=== PATIENT | male | born 1930 | race Caucasian/White ===

== ENCOUNTER 2018-03-27 09:56 | Emergency (ER) | payer MEDICARE, OTHER ==
--- NOTE | 2018-03-27 10:40 | UC ---
Laceration HPI - HPI Summary HPI Summary: 87 yo male presents with laceration to right upper back. He tells me that he was walking to get into his recliner at home and tripped over the rug. Tumbled to his right and impacted a wall clock - breaking the glass face of the clock. A piece of glass caused a laceration to his right upper back. He says his last tetanus shot was last year. Denies hitting his head or LOC. - History Of Current Complaint Chief Complaint: UCLaceration Stated Complaint: LAC UNDER ARM PIT Time Seen by Provider: 03/27/18 10:39 Laceration Location: Back Mechanism Of Injury: Sharp Trauma Onset/Duration: Sudden Onset Pain Intensity: 0 - Allergies/Home Medications Allergies/Adverse Reactions: Allergies Allergy/AdvReac Type Severity Reaction Status Date / Time No Known Allergies Allergy Verified 03/27/18 10:17 PMH/Surg Hx/FS Hx/Imm Hx - Additional Past Medical History Additional PMH: None - Surgical History Surgical History: Yes Surgery Procedure, Year, and Place: hips shoulders - Family History Known Family History: Positive: None - Social History Occupation: Retired Lives: Alone Alcohol Use: Occasionally Substance Use Type: None Smoking Status (MU): Never Smoked Tobacco Review of Systems Constitutional: Negative Skin: Other - Laceration right upper back Respiratory: Negative Cardiovascular: Negative Neurovascular: Negative Neurological: Negative Psychological: Negative All Other Systems Reviewed And Are Negative: Yes Physical Exam - Summary Physical Exam Summary: GENERAL: NAD. WDWN. No pain distress. SKIN: Right upper back with 1.5cm flap-like partial thickness laceration. Mild active bleeding. NECK: Supple. Nontender. No lymphadenopathy. CHEST: No accessory muscle use. Breathing comfortably and in no distress. CV: Pulses intact NEURO: Alert. CN II-XII grossly intact. PSYCH: Age appropriate behavior. Triage Information Reviewed: Yes Vital Signs: Initial Vital Signs Temp 98 F 03/27/18 10:14 Pulse 85 03/27/18 10:14 Resp 16 03/27/18 10:14 BP 119/68 03/27/18 10:14 Pulse Ox 100 03/27/18 10:14 Vital Signs Reviewed: Yes Laceration Repair - Laceration Repair 1 Description: Stellate Laceration Size After Repair: Length (cm) - 1.5 Modified For Repair: No Type Injection: Local Anesthesia Used: 2.0% Lido Additive Used (in ml): Epi Cleansing Completed Via Routine Prep: Yes Closure Material: Sutures Closure Method: Single Layer Suture Of: Skin Suture Type: Prolene Laceration Course/Dx - Course/Dx Course Of Treatment: A time out was performed, witnessed, and signed. The area was cleansed with NS. 1mL of 2% lidocaine with epi was administered and good anesthetization was achieved. In the usual sterile fashion, FOUR 5-0 prolene interrupted sutures were placed. The wound was bandaged with telfa . Pt tolerated procedure well. - Differential Dx - Laceration/Wound Provider Diagnoses: Laceration right upper back Discharge - Sign-Out/Discharge Documenting (check all that apply): Patient Departure - Discharge Plan Condition: Stable Disposition: HOME Patient Education Materials: Care For Your Stitches (DC), Laceration (DC) Referrals: No Primary Care Phys,NOPCP [Primary Care Provider] - Additional Instructions: If you develop a fever, shortness of breath, chest pain, new or worsening symptoms - please call your PCP or go to the ED. 1) Please keep the area bandaged, clean, dry, and intact for the next 24- 48hours. 2) If you develop a fever, colored or thick discharge, increased pain or swelling - please call your PCP or go to the ED. 3) Please return in 10-12 days to have your FOUR sutures removed. - Billing Disposition and Condition Condition: STABLE Disposition: Home
[2018-03-27] MEDS ORDERED: Lidocaine 2% W/EPI 1:100,000* 20 ML MDV INJ ONE (10:41)
== END 2018-03-27 11:05 | disposition home or self-care (01) ==
LOC: UCEAST 09:56
DX: S21.211A Laceration without foreign body of right back wall of thorax without penetration into thoracic cavity, initial encounter (principal); W01.198A Fall on same level from slipping, tripping and stumbling with subsequent striking against other object, initial encounter; Y93.01 Activity, walking, marching and hiking; Y92.008 Other place in unspecified non-institutional (private) residence as the place of occurrence of the external cause
CPT/HCPCS: 12001; 99201; G0463

== ENCOUNTER 2019-04-29 18:38 | Inpatient (IN) | payer MEDICARE, OTHER ==
[2019-04-29 22:38] LABS: ABS Basophils 0.1 10^3/ul (0-0.2); ABS Eosinophils 0.1 10^3/ul (0-0.6); ABS Monocytes 0.7 10^3/ul (0-0.8); ABS Neutrophils 6.8 10^3/ul (1.5-7.7); Eosinophil % 0.6 %; Hematocrit 44 % (42-52); Lymphocyte % 11.2 %; Mean Corpuscular HGB Conc 34 g/dL (31-36); Mean Corpuscular Hemoglobin 31 pg (27-31); Mean Corpuscular Volume 92 fL (80-94); Mean Platelet Volume 7.4 fL (7.4-10.4); Platelet Count 181 10^3/uL (150-450); Red Cell Distribution Width 15 % (10-15); White Blood Count 8.6 10^3/uL (3.5-10.8)
[2019-04-29 22:43] LABS: INR 0.98 (0.82-1.09)
[2019-04-29 22:59] LABS: Albumin 4.4 g/dL (3.2-5.2); Albumin/Globulin Ratio 1.9 (1-3); BUN/Creatinine Ratio 27.3 (8-20); Calcium 10.2 mg/dL (8.6-10.3); EGFR African American 99.4 (>60); EGFR Non-African American 82.1 (>60); Globulin 2.3 g/dL (2-4); Total Bilirubin 0.9 mg/dL (0.2-1.0); Total Protein 6.7 g/dL (6.4-8.9)
[2019-04-29 23:00] LABS: Troponin I 0.02 ng/mL (<0.04)
[2019-04-29 23:45] LABS: Urine Appearance Cloudy; Urine Bilirubin Negative (Negative); Urine Blood Negative (Negative); Urine Color Amber; Urine Glucose 1+(50 mg/dL) (Negative); Urine Ketones Trace (Negative); Urine Nitrite Negative (Negative); Urine Protein Negative (Negative); Urine Specific Gravity 1.024 (1.010-1.030); Urine Urobilinogen Negative (Negative)
[2019-04-30] MEDS ORDERED: Dexamethasone IV* 4 MG/ML 5 ML VIAL (20 MG) IVPB ONE (00:23)
[2019-04-30] MEDS ORDERED: Dexamethasone IV* 10 MG in NS 0.9% 50 ML* 50 ML IVPB ONE (01:00)
--- NOTE | 2019-04-30 02:30 | ED ---
Neurological HPI - HPI Summary HPI Summary: Patient with history of glioblastoma complains of new onset inability to bear weight on right leg starting today. 2 falls today due to right lower extremity weakness but denies any injury from fall. Denies fever, cough, GOMEZ, other neurological deficits, CP, SOB, vision change, N/V/D, abdominal pain, change in urine, change in BM. Patient has history of tumor debulking in December 2018, and finished 3 weeks of radiation and by mouth chemotherapy in March. Patient is from [place], recently moved to [place] weeks ago, has no neurology,, neurosurgery, oncology providers yet. Patient not compliant with prescribed dexamethasone 2 mg daily. - History of Current Complaint Chief Complaint: EDNeurologicalDeficit Stated Complaint: FALL PER DAUGHTER Time Seen by Provider: 04/29/19 23:37 Hx Obtained From: Patient, Family/Visual Aid Expert Onset/Duration: Sudden Onset, Started hours ago Timing: Intermittent Episodes Lasting: Onset Severity: Moderate Current Severity: Moderate Seizure Severity: Moderate Neurological Deficit Location: RLE Pain Intensity: 0 Pain Scale Used: 0-10 Numeric Character: Weak - Allergy/Home Medications Allergies/Adverse Reactions: Allergies Allergy/AdvReac Type Severity Reaction Status Date / Time Sulfa (Sulfonamide Allergy Rash Verified 04/29/19 19:02 Antibiotics) Home Medications: Home Medications Atorvastatin* 10 mg PO DAILY 04/29/19 [History Confirmed 04/29/19] B Complex CAP* 1 tab PO DAILY 04/29/19 [History Confirmed 04/29/19] Calcium + D3 ER Tablet 2 tab PO DAILY 04/29/19 [History Confirmed 04/29/19] Dexamethasone 2 mg PO SEE INSTRUCTIONS 04/29/19 [History Confirmed 04/29/19] Diazepam TAB(*) 10 mg PO SEE INSTRUCTIONS 04/29/19 [History Confirmed 04/29/19] Finasteride TAB* 5 mg PO DAILY 04/29/19 [History Confirmed 04/29/19] Flonase NASAL SPRAY 50MCG* 2 spray BOTH NARES DAILY 04/29/19 [History Confirmed 04/30/19] Latanoprost 0.005% Eye Drop 1 drop BOTH EARS DAILY 04/29/19 [History Confirmed 04/29/19] Metoprolol Succinate XL TAB* 25 mg PO DAILY 04/29/19 [History Confirmed 04/29/19 ] Multivitamin 1 tab PO DAILY 04/29/19 [History Confirmed 04/29/19] Norvasc 2.5 mg PO DAILY 04/29/19 [History Confirmed 04/29/19] [place]-3 1,040 mg PO DAILY 04/29/19 [History Confirmed 04/29/19] Potassium Chlor TAB* 10 mg PO BID 04/29/19 [History Confirmed 04/29/19] Probiotic 1 tab PO DAILY 04/29/19 [History Confirmed 04/29/19] Tamsulosin CAP* 0.4 mg PO BID 04/29/19 [History Confirmed 04/29/19] Temazepam CAP* 15 mg PO BEDTIME 04/29/19 [History Confirmed 04/29/19] Testosterone 5 ml IM WEEKLY 04/29/19 [History Confirmed 04/29/19] Timolol 0.5% OPTH.GEO* 1 drop BOTH EYES DAILY 04/29/19 [History Confirmed ] Vitamin D3 50 mcg PO DAILY 04/29/19 [History Confirmed 04/29/19] l-Arginine 1,500 mg PO DAILY 04/29/19 [History Confirmed 04/29/19] PMH/Surg Hx/FS Hx/Imm Hx Endocrine/Hematology History: Denies: Hx Anticoagulant Therapy Cardiovascular History: Denies: Hx Pacemaker/ICD History: Denies: Hx Dialysis Sensory History: Denies: Hx Eye Prosthesis Opthamlomology History: Denies: Hx Legally Blind EENT History: Denies: Hx Deafness - Surgical History Surgery Procedure, Year, and Place: hips shoulders Infectious Disease History: No Infectious Disease History: Denies: Traveled Outside the [place] in Last 30 Days - Family History Known Family History: Positive: None - Social History Alcohol Use: Occasionally Substance Use Type: Reports: None Smoking Status (MU): Never Smoked Tobacco Review of Systems Constitutional: Negative Eyes: Negative ENT: Negative Cardiovascular: Negative Respiratory: Negative Gastrointestinal: Negative Genitourinary: Negative Musculoskeletal: Negative, Other Skin: Negative Neurological: Negative Psychological: Normal All Other Systems Reviewed And Are Negative: Yes Physical Exam - Summary Physical Exam Summary: Neuro exam normal. Vital Signs On Initial Exam: Initial Vitals Temp Pulse Resp BP Pulse Ox 99.3 F 82 16 141/68 95 04/29/19 18:55 04/29/19 18:55 04/29/19 18:55 04/29/19 18:55 04/29/19 18:55 Diagnostics - Vital Signs Vital Signs Temp Pulse Resp BP Pulse Ox 04/30/19 01:08 75 105/53 97 04/30/19 01:00 73 95 04/30/19 00:37 105/56 04/30/19 00:07 123/49 04/30/19 00:00 76 97 04/29/19 23:37 78 126/62 96 04/29/19 23:35 79 97 04/29/19 21:36 98.4 F 83 20 145/58 95 04/29/19 18:55 99.3 F 82 16 141/68 95 - Laboratory Lab Results: Lab Results 04/29/19 04/29/19 04/29/19 Range/Units 22:25 22:25 22:25 WBC 8.6 (3.5-10.8) 10^3/uL RBC 4.80 (4.18-5.48) 10^6 /uL Hgb 15.0 (14.0-18.0) g/dL Hct 44 (42-52) % MCV 92 (80-94) fL MCH 31 (27-31) pg MCHC 34 (31-36) g/dL RDW 15 (10-15) % Plt Count 181 (150-450) 10^3/uL MPV 7.4 (7.4-10.4) fL Neut % (Auto) 79.2 % Lymph % (Auto) 11.2 % [place] % (Auto) 8.3 % Eos % (Auto) 0.6 % Baso % (Auto) 0.7 % Absolute Neuts (auto) 6.8 (1.5-7.7) 10^3/ul Absolute Lymphs (auto) 1.0 (1.0-4.8) 10^3/ul Absolute Monos (auto) 0.7 (0-0.8) 10^3/ul Absolute Eos (auto) 0.1 (0-0.6) 10^3/ul Absolute Basos (auto) 0.1 (0-0.2) 10^3/ul Absolute Nucleated RBC 0.0 10^3/ul Nucleated RBC % 0.0 INR (Anticoag Therapy) 0.98 (0.82-1.09) Sodium 142 (135-145) mmol/L Potassium 4.0 (3.5-5.0) mmol/L Chloride 108 (101-111) mmol/L Carbon Dioxide 28 (22-32) mmol/L Anion Gap 6 (2-11) mmol/L BUN 24 (6-24) mg/dL Creatinine 0.88 (0.67-1.17) mg/dL Est GFR ( Amer) 99.4 (>60) Est GFR (Non-Af Amer) 82.1 (>60) BUN/Creatinine Ratio 27.3 H (8-20) Glucose 129 H (70-100) mg/dL Lactic Acid (0.5-2.0) mmol/L Calcium 10.2 (8.6-10.3) mg/dL Total Bilirubin 0.90 (0.2-1.0) mg/dL AST 40 H (13-39) U/L ALT 25 (7-52) U/L Alkaline Phosphatase 66 (34-104) U/L Troponin I 0.02 (<0.04) ng/mL Total Protein 6.7 (6.4-8.9) g/dL Albumin 4.4 (3.2-5.2) g/dL Globulin 2.3 (2-4) g/dL Albumin/Globulin Ratio 1.9 (1-3) Urine Color Urine Appearance Urine pH (5-9) Ur Specific [place] (1.010-1.030) Urine Protein (Negative) Urine Ketones (Negative) Urine Blood (Negative) Urine Nitrate (Negative) Urine Bilirubin (Negative) Urine Urobilinogen (Negative) Ur Leukocyte Esterase (Negative) Urine Glucose (Negative) Urine Ascorbic Acid (Negative) 04/29/19 04/29/19 Range/Units 22:25 23:35 WBC (3.5-10.8) 10^3/uL RBC (4.18-5.48) 10^6 /uL Hgb (14.0-18.0) g/dL Hct (42-52) % MCV (80-94) fL MCH (27-31) pg MCHC (31-36) g/dL RDW (10-15) % Plt Count (150-450) 10^3/uL MPV (7.4-10.4) fL Neut % (Auto) % Lymph % (Auto) % [place] % (Auto) % Eos % (Auto) % Baso % (Auto) % Absolute Neuts (auto) (1.5-7.7) 10^3/ul Absolute Lymphs (auto) (1.0-4.8) 10^3/ul Absolute Monos (auto) (0-0.8) 10^3/ul Absolute Eos (auto) (0-0.6) 10^3/ul Absolute Basos (auto) (0-0.2) 10^3/ul Absolute Nucleated RBC 10^3/ul Nucleated RBC % INR (Anticoag Therapy) (0.82-1.09) Sodium (135-145) mmol/L Potassium (3.5-5.0) mmol/L Chloride (101-111) mmol/L Carbon Dioxide (22-32) mmol/L Anion Gap (2-11) mmol/L BUN (6-24) mg/dL Creatinine (0.67-1.17) mg/dL Est GFR ( Amer) (>60) Est GFR (Non-Af Amer) (>60) BUN/Creatinine Ratio (8-20) Glucose (70-100) mg/dL Lactic Acid 1.1 (0.5-2.0) mmol/L Calcium (8.6-10.3) mg/dL Total Bilirubin (0.2-1.0) mg/dL AST (13-39) U/L ALT (7-52) U/L Alkaline Phosphatase (34-104) U/L Troponin I (<0.04) ng/mL Total Protein (6.4-8.9) g/dL Albumin (3.2-5.2) g/dL Globulin (2-4) g/dL Albumin/Globulin Ratio (1-3) Urine Color [place] Urine Appearance Cloudy Urine pH 5.0 (5-9) Ur Specific [place] 1.024 (1.010-1.030) Urine Protein Negative (Negative) Urine Ketones Trace A (Negative) Urine Blood Negative (Negative) Urine Nitrate Negative (Negative) Urine Bilirubin Negative (Negative) Urine Urobilinogen Negative (Negative) Ur Leukocyte Esterase Negative (Negative) Urine Glucose 1+(50 mg/dl) A (Negative) Urine Ascorbic Acid * A (Negative) Result Diagrams: 04/29/19 22:25 04/29/19 22:25 Lab Statement: Any lab studies that have been ordered have been reviewed, and results considered in the medical decision making process. Course/Dx - Course Course Of Treatment: Patient with history of glioblastoma complains of new onset inability to bear weight on right leg starting today. 2 falls today due to right lower extremity weakness but denies any injury from fall. Denies fever , cough, GOMEZ, other neurological deficits, CP, SOB, vision change, N/V/D, abdominal pain, change in urine, change in BM. Patient has history of tumor debulking in December 2018, and finished 3 weeks of radiation and by mouth chemotherapy in March. Patient is from [place], recently moved to [place] weeks ago, has no neurology,, neurosurgery, oncology providers yet. Patient not compliant with prescribed dexamethasone 2 mg daily. Vital signs within normal limits. Labs unremarkable. CT brain positive for 2.5 cm cystic mass in the left frontal lobe just deep to a left frontal craniotomy defect, likely compatible with provided history of glioblastoma. Recommend further evaluation with MRI brain with and without contrast. Severe vasogenic edema throughout the left frontal lobe with associated 0.7 cm [id number] midline shift and subfalcine herniation. No prior imaging is available as patient is recently moved from [place]. Unable to determine how much of current edema is baseline or new. No neurosurgery coverage till 8 AM. Discussed patient with neurologist consultants intern Dr. Spencer who stated given patient's age and diagnosis that medical management with steroids likely most reasonable option at this time. However Dr. Spencer, recommended patient and family be made aware that there is no neurosurgical coverage until 8 AM, and should patient decompensate there is risk of patient . Alternative option would be transfer to higher level of care with neurosurgical coverage. Daughter has POA, has been advised of risks and options, and wants her father to be admitted here at [facility] [place]. Molst form completed. Admitted to hospitalist. - Diagnoses Provider Diagnoses: Glioblastoma, Vasogenic brain edema Discharge ED - Sign-Out/Discharge Documenting (check all that apply): Patient Departure Patient Received Moderate/Deep Sedation with Procedure: No - Discharge Plan Condition: Stable Disposition: ADMITTED TO [facility] - Billing Disposition and Condition Condition: STABLE Disposition: Admitted to [facility]
[2019-04-30] MEDS: NS 0.9% 1000 ML** 1,000 ML IV SCH ×2 (06:03→18:28)
[2019-04-30] MEDS: Dexamethasone IV* 4 MG/ML 1 ML (4 MG) IV SLOW PU SCH ×5 (06:08→22:08)
--- NOTE | 2019-04-30 09:16 | HP ---
CC: Dr. Juan Crocker; Dr. Ender Ramirez; Dr. Piper Spencer ADMISSION HISTORY AND PHYSICAL: DATE OF ADMISSION: 04/30/19 CHIEF COMPLAINT: Recurrent falls. HISTORY OF PRESENT ILLNESS: This is an 88-year-old male with past medical history of hypertension, d yslipidemia, low testosterone, urinary incontinence, was in his usual state of health up until December of this year when he started having expressive aphasia and recurrent falls and subsequently diagnosed w ith glioblastoma in the state [facility], where he received surgical debridement and 3 weeks of radia tion and some oral chemotherapy, after which he came back to [place] on 04/08/19 where his daughter wa s caring for him. Over the last few days, the patient still has some mild intermittent expressive ap hasia, per daughter which is an ongoing issue since December when the patient was diagnosed with the gliob lastoma and the last few days the patient was having severe weakness and falls and the weakness was w orsened on the right side. He sustained a fall on Monday night and then when the daughter went to [facility] they had another person come in home to look at him and it seems the patient had another fall, at which point they called his primary, Dr. Crocker who suggested the patient go to the ER for further ev aluation. The patient offers no complaints at this point, seems to be oriented and did not have any obvious expressive aphasia during my evaluation. When I suggested this to the daughters, she states that there are some moments where his aphasia seems to be much better compared to his other times. T he patient otherwise did not have any other fever or chills and stated that he feels fine, but he solo s not recollect falling down it seems. Daughter also suggested that the patient has been refusing to take his steroids, anxiety and sleeping pills the last few days. PAST MEDICAL HISTORY: As mentioned hypertension, dyslipidemia, low testosterone, and urinary inconti nence. PAST SURGICAL HISTORY: Includes surgical debridement of his glioblastoma. HOME MEDICATIONS: The patient is currently on: 1. Flonase 2 sprays at both nares daily. 2. Dexamethasone 2 mg as needed. 3. Diazepam 10 mg as needed. 4. Testosterone 5 mL intramuscular weekly. 5. Temazepam 15 mg daily at bedtime. 6. B-Complex 1 tablet oral daily. 7. L-arginine 1500 mg oral daily. 8. Timolol 0.5% drop ophthalmic both eyes daily. 9. Multivitamin 1 tablet oral daily. 10. Calcium with vitamin D3 two tablets oral daily. 11. Tamsulosin 0.4 mg p.o. b.i.d. 12. Latanoprost 0.005% drop ophthalmic both eyes daily. 13. Norvasc 2.5 mg oral daily. 14. Metoprolol 25 mg oral daily. 15. Atorvastatin 10 mg oral daily. 16. Probiotic 1 tablet oral daily. 17. Potassium chloride 10 mg oral daily. 18. [place]-3 1040 mg oral daily. 19. Vitamin D3 50 mcg oral daily. 20. Finasteride 5 mg oral daily. ALLERGIES: The patient is allergic to SULFA ANTIBIOTICS, which give him rash. FAMILY HISTORY: Noncontributory at his age. SOCIAL HISTORY: The patient quit smoking in 1974 but prior to that had 3 packs per day history of sm oking for 30 years. No other drug use or alcohol use. Lives with his daughter currently. REVIEW OF SYSTEMS: A 14-point review of systems did not reveal any new information, other than what is stated in the HPI. PHYSICAL EXAMINATION GENERAL: The patient is awake, alert, oriented x3, did not appear to be in any acute distress. VITAL SIGNS: In the ER, BP was noted to be 104/53, heart rate 75, respiration rate 16, saturating 97 % on room air, temperature max was noted to be 99.3. HEAD AND NECK: Atraumatic, normocephalic. Bilateral pupils are reactive. Oral mucosa was dry. Nec k is supple. No jugular venous distention. LUNGS: Clear to auscultation bilaterally. No wheezing, rhonchi, or rales. HEART: S1, S2. Regular rate and rhythm. ABDOMEN: Soft, nontender, and nondistended. EXTREMITIES: No cyanosis, clubbing, or edema. NEUROLOGIC: Gross examination, the patient had decreased strength to 4/5 on both right upper and low er extremity. Sensation was intact grossly. DIAGNOSTIC STUDIES/LAB DATA: Labs: CBC was unremarkable. Coagulation profile was unremarkable. C omprehensive metabolic panel was unremarkable except for minimally elevated random glucose at 129. U rinalysis showed trace ketones but negative for any leuk esterase or nitrites. CT brain showed approximately 2.5 cm cystic mass in the left frontal lobe just deep to left frontal c raniotomy defect, likely compatible with the provided history of glioblastoma. There is also severe vasogenic edema throughout the left frontal lobe with associated 0.7 cm left to right midline shift a nd subfalcine herniation. IMPRESSION: This is an 88-year-old gentleman with glioblastoma and other chronic medical problems in cluding hypertension, cholesterol, low testosterone, and urinary incontinence, questionable benign pr ostatic hypertrophy, here due to recurrent falls and new onset of right-sided weakness and some inter mittent expressive aphasia, likely all secondary to glioblastoma and the vasogenic edema, and midline shift seen in the CT scan. Both Dr. Ramirez and Dr. Spencer were consulted and initially was recommended the patient to be transferred to another facility with neurosurgical evaluation; however, daughter s tated that they did not want any aggressive therapy. They were already given timelines of anywhere b etween 6 months to 9 months of life expectancy for this patient, so they already had end-of-life disc ussion before and did not want anything aggressive at this point and wants patient to be admitted her e. ASSESSMENT AND PLAN: 1. Recurrent falls and weakness on the right side secondary to the glioblastoma with vasogenic edema . We will start the patient on high dose Decadron IV. Consult Neurology to evaluate the patient. W e will also consult Oncology to evaluate the patient, although the patient's daughter seems to be mor e interested in hospice evaluation and may be placing the patient on rehabilitation facility as they were having a difficult time caring for the patient. 2. History of glioblastoma. 3. History of hypertension. We will hold blood pressure medication. 4. History of dyslipidemia. We will hold his all cholesterol medication. 5. History of low testosterone. We will hold the medications. 6. History of urine incontinence. We will hold the medications. 7. DVT prophylaxis with sequential compression device. 8. Code status: The patient is DNR/DNI per daughter who is the healthcare proxy and even the patien t verbally also accepted the fact that he wanted to be do not resuscitate and do not intubate and he is okay with the daughter filling up the MOLST form. [id number]/[facility] #: [id number]
--- NOTE | 2019-04-30 11:39 | CONS ---
CC: Dr. Juan Crocker * MEDICAL ONCOLOGY CONSULTATION NOTE: DATE OF CONSULT: 04/30/19 REASON FOR CONSULT: Recurrent glioblastoma multiforme. HISTORY OF PRESENT ILLNESS: History is obtained from the patient's chart and from a visit with the patient as well as review of the records available only from [facility]. Prior records from [place] are currently not available to me. An 88-year-old male developed falls and aphasia in December 2018 and was subsequently diagnosed with glioblastoma multiforme. He reportedly received surgical, either debulking or resection followed by 3 weeks of radiation therapy along with oral chemotherapy, presumably Temodar. I am unsure if he received any subsequent adjuvant Temodar after the initial chemo and radiation. He moved to be with his daughter on 04/08/19. He developed increasing expressive aphasia along with several episodes of falling. He presented to the emergency room where a CT of the brain was performed and revealed a 2.5 cm cystic mass in the frontal lobe just deep to the left frontal craniotomy defect. There was severe vasogenic edema present along with 7 mm of left to right midline shift and subfalcine herniation. He had been on steroids with Decadron apparently at 2 mg per day, although apparently was refusing to take these medications at times. His functional status has markedly declined in the recent past. PAST MEDICAL HISTORY: Hypertension, hyperlipidemia, urinary incontinence. Status post surgery for glioblastoma in December 2018. HOME MEDICATIONS: Home medications are documented in the accompanying history and physical. I will not repeat them here as I have had no chance to confirm them with any providers or family, and the patient is unable to provide a med list. ALLERGIES: To SULFA. SOCIAL HISTORY: The patient quit smoking in 1974, 3 packs per day for 30 years prior to that. No significant alcohol use. Lived in [place] until 2 weeks ago and then has been living with daughter in [place] recently. REVIEW OF SYSTEMS: Not obtainable as the patient is fairly confused and has moderate expressive aphasia. PHYSICAL EXAM: An 88-year-old male, who is alert and oriented to year and after some reflection to month. Knows that he is in room 405, but unaware in what city or what hospital. Vital Signs: Blood pressure 104/53, pulse 75, T- max 99.3. HEENT: PERRL, EOMI. No erythema or exudates. No palpable cervical, supraclavicular or axillary adenopathy. Lungs: Clear. Heart: Regular rate and rhythm. No murmurs. Abdomen: Soft, nontender. Extremities: No edema. Neurologic exam: Mild right pronator drift. Motor is 4+/5 in all extremities. Cranial nerves III through XII appear to be intact. LABORATORY STUDIES: CBC: White count 8600, H and H 44/15, platelet count 181, 000. Chemistry studies: Sodium 142, potassium 4.0, chloride 108, bicarb 28, BUN 24, creatinine 0.88, glucose 129. IMPRESSION: An 88-year-old male with reported history of glioblastoma multiforme status post surgery, unclear if resection or debulking or just biopsy in December 2018. Reportedly received short course of chemotherapy along with radiation, unclear if he received any adjuvant Temodar subsequent to that. He had been on a course of steroids, but recently has had been on much lower doses and at times refusing his steroids. Associated with the lack of steroids, he now presented to the emergency room with significant vasogenic edema and midline shift. He does have a DNR/DNI in place, which was confirmed with his daughter, to which she verbally agrees. He has not wanted any further aggressive care. Glioblastoma multiforme in general has been treated with longer course of radiation therapy, but a trial for glioblastoma multiforme short course therapy in the elderly, at least age 65 was performed and reported out in [place] Journal of Medicine in 2017. This appeared to show some benefit to adding Temodar to radiation therapy. Prognosis was poor in all groups. Medium progression free survival was 5.3 months with Temodar and 3.9 months without. Overall survivals range from 8 to 9 months in the study. Given the propensity of glioblastoma multiforme to do worse as the age progresses at age 88, his median survival is likely considerably less than mentioned above and these median survivals need to be measured from December 2018 on, he is already 4 months in. Certainly, palliative care would be appropriate. There is a significant possibility that his symptoms could be improved with ongoing use of steroids if he is willing. He apparently was only on 2 mg per day at home and refusing this at times. He receives a bolus of 10 mg and was then started on 6 mg q.4 hours, a total dose of 36 mg per day at the time of this hospitalization. This dose would appear to be a higher than it is typically recommended and there is little, if any efficacy for going beyond 16 to 24 mg per day in this situation. I would recommend continuing steroids, either p.o. or IV at a lower dose of 16 to 24 mg total per day. Hospice consult would certainly be appropriate. It is unclear whether the patient will be able to return home with family or family had alternative placement. If the patient were to request more aggressive care, certainly he could be resumed on adjuvant Temodar along with appropriate doses of steroids. It is possible this might extend life expectancy by an average of an extra 1 to 2 months, but it is unlikely to provide any added benefit beyond that. [id number]/[facility] #: [id number] MTDD
--- NOTE | 2019-04-30 12:42 | PN ---
Subjective Date of Service: 04/30/19 Interval History: Care team still unable to reach family. Pt limited historian given expressive aphasia but does report feeling "perfect". Denies current pain or weakness, but also noted to have significant word finding difficulty. Cont on IV steroids. Pending Swallow eval before food and PO meds. Pending Pall Care consult, as pt was amenable to this on interview. Objective Active Medications: Dexamethasone Sodium Phosphate (Decadron Iv*) 6 mg IV SLOW PU Q4H [facility] Last Admin: 04/30/19 09:12 Dose: 6 mg Sodium Chloride (Ns 0.9% 1000 Ml) 1,000 mls @ 75 mls/hr IV PER RATE [facility] Last Admin: 04/30/19 06:03 Dose: 75 mls/hr Vital Signs - 8 hr 04/30/19 04/30/19 04/30/19 04:37 05:39 05:50 Temperature 0 F 98.2 F Pulse Rate 63 0 62 Respiratory 0 16 Rate Blood Pressure 92/59 0/0 123/54 (mmHg) O2 Sat by Pulse 94 0 97 Oximetry 04/30/19 04/30/19 04/30/19 06:02 07:15 11:15 Temperature 98.2 F 97.9 F 97.7 F Pulse Rate 62 61 70 Respiratory 16 17 16 Rate Blood Pressure 123/54 138/76 137/64 (mmHg) O2 Sat by Pulse 97 98 98 Oximetry Oxygen Devices in Use Now: None Appearance: well appearing man in NAD Eyes: No Scleral Icterus Ears/Nose/Mouth/Throat: Clear Oropharnyx, Mucous Membranes Moist Respiratory: Symmetrical Chest Expansion and Respiratory Effort, Clear to Auscultation Cardiovascular: NL Sounds; No Murmurs; No JVD, RRR Extremities: No Edema Skin: No Rash or Ulcers, - - scab on R nose Neurological: Alert and Oriented x 3, - - frequent severe word finding difficulty, expressive aphasia, frequently repeats inappropriate words (for eg: will say this procedure writer's last name instead of answer to question about symptoms); CN2-12 intact, strength 4/5 in RLE, 5/5 in other extremities; no pronator drift Result Diagrams: 04/29/19 22:25 04/29/19 22:25 Additional Lab and Data: Lab Results 04/29/19 04/29/19 04/29/19 Range/Units 22:25 22:25 22:25 WBC 8.6 (3.5-10.8) 10^3/uL RBC 4.80 (4.18-5.48) 10^6 /uL Hgb 15.0 (14.0-18.0) g/dL Hct 44 (42-52) % MCV 92 (80-94) fL MCH 31 (27-31) pg MCHC 34 (31-36) g/dL RDW 15 (10-15) % Plt Count 181 (150-450) 10^3/uL MPV 7.4 (7.4-10.4) fL Neut % (Auto) 79.2 % Lymph % (Auto) 11.2 % [place] % (Auto) 8.3 % Eos % (Auto) 0.6 % Baso % (Auto) 0.7 % Absolute Neuts (auto) 6.8 (1.5-7.7) 10^3/ul Absolute Lymphs (auto) 1.0 (1.0-4.8) 10^3/ul Absolute Monos (auto) 0.7 (0-0.8) 10^3/ul Absolute Eos (auto) 0.1 (0-0.6) 10^3/ul Absolute Basos (auto) 0.1 (0-0.2) 10^3/ul Absolute Nucleated RBC 0.0 10^3/ul Nucleated RBC % 0.0 INR (Anticoag Therapy) 0.98 (0.82-1.09) Sodium 142 (135-145) mmol/L Potassium 4.0 (3.5-5.0) mmol/L Chloride 108 (101-111) mmol/L Carbon Dioxide 28 (22-32) mmol/L Anion Gap 6 (2-11) mmol/L BUN 24 (6-24) mg/dL Creatinine 0.88 (0.67-1.17) mg/dL Est GFR ( Amer) 99.4 (>60) Est GFR (Non-Af Amer) 82.1 (>60) BUN/Creatinine Ratio 27.3 H (8-20) Glucose 129 H (70-100) mg/dL Lactic Acid (0.5-2.0) mmol/L Calcium 10.2 (8.6-10.3) mg/dL Total Bilirubin 0.90 (0.2-1.0) mg/dL AST 40 H (13-39) U/L ALT 25 (7-52) U/L Alkaline Phosphatase 66 (34-104) U/L Troponin I 0.02 (<0.04) ng/mL Total Protein 6.7 (6.4-8.9) g/dL Albumin 4.4 (3.2-5.2) g/dL Globulin 2.3 (2-4) g/dL Albumin/Globulin Ratio 1.9 (1-3) Urine Color Urine Appearance Urine pH (5-9) Ur Specific [place] (1.010-1.030) Urine Protein (Negative) Urine Ketones (Negative) Urine Blood (Negative) Urine Nitrate (Negative) Urine Bilirubin (Negative) Urine Urobilinogen (Negative) Ur Leukocyte Esterase (Negative) Urine Glucose (Negative) Urine Ascorbic Acid (Negative) 04/29/19 04/29/19 Range/Units 22:25 23:35 WBC (3.5-10.8) 10^3/uL RBC (4.18-5.48) 10^6 /uL Hgb (14.0-18.0) g/dL Hct (42-52) % MCV (80-94) fL MCH (27-31) pg MCHC (31-36) g/dL RDW (10-15) % Plt Count (150-450) 10^3/uL MPV (7.4-10.4) fL Neut % (Auto) % Lymph % (Auto) % [place] % (Auto) % Eos % (Auto) % Baso % (Auto) % Absolute Neuts (auto) (1.5-7.7) 10^3/ul Absolute Lymphs (auto) (1.0-4.8) 10^3/ul Absolute Monos (auto) (0-0.8) 10^3/ul Absolute Eos (auto) (0-0.6) 10^3/ul Absolute Basos (auto) (0-0.2) 10^3/ul Absolute Nucleated RBC 10^3/ul Nucleated RBC % INR (Anticoag Therapy) (0.82-1.09) Sodium (135-145) mmol/L Potassium (3.5-5.0) mmol/L Chloride (101-111) mmol/L Carbon Dioxide (22-32) mmol/L Anion Gap (2-11) mmol/L BUN (6-24) mg/dL Creatinine (0.67-1.17) mg/dL Est GFR ( Amer) (>60) Est GFR (Non-Af Amer) (>60) BUN/Creatinine Ratio (8-20) Glucose (70-100) mg/dL Lactic Acid 1.1 (0.5-2.0) mmol/L Calcium (8.6-10.3) mg/dL Total Bilirubin (0.2-1.0) mg/dL AST (13-39) U/L ALT (7-52) U/L Alkaline Phosphatase (34-104) U/L Troponin I (<0.04) ng/mL Total Protein (6.4-8.9) g/dL Albumin (3.2-5.2) g/dL Globulin (2-4) g/dL Albumin/Globulin Ratio (1-3) Urine Color [place] Urine Appearance Cloudy Urine pH 5.0 (5-9) Ur Specific [place] 1.024 (1.010-1.030) Urine Protein Negative (Negative) Urine Ketones Trace A (Negative) Urine Blood Negative (Negative) Urine Nitrate Negative (Negative) Urine Bilirubin Negative (Negative) Urine Urobilinogen Negative (Negative) Ur Leukocyte Esterase Negative (Negative) Urine Glucose 1+(50 mg/dl) A (Negative) Urine Ascorbic Acid * A (Negative) Assess/Plan/Problems-Billing Assessment: 88M with GBM s/p surgical debridement and radiation, HTN, low T, BPH, who presents with increasing frequency of falls, found with expressive aphasia and CT concerning for L frontal lobe mass with severe vasogenic edema, midline shift, and subfalcine herniation. - Patient Problems (1) Glioblastoma multiforme Comment: s/p debulking and possible radiation, although pending outside records. - cont IV steroids - pending swallow evaluation - apprecaite Onc and Neuro recs - pt amenable to Pall Care consult (2) Falls Comment: Likely from known brain mass with edema. Pt with RLE weakness and reports this is why he continues tripping. - on steroids - pending PT - likely will need placement (3) DVT prophylaxis Comment: on SCDs given brain ca (4) DNR (do not resuscitate) Current Visit: Yes Status: Acute
--- NOTE | 2019-04-30 14:18 | CONSULT ---
Palliative / Hospice Consult Ordering Provider: Fiona Larsen - Ana Referal Reason: Goals of care discussion and aftercare/no bowel meds/no narcotics - Subjective Code Status: DNR Advance Directives Location: In Chart [facility] Part A Completed: Yes - on chart [facility] Part E Completed:: Yes - on chart - History or Present Illness History or Present Illness: 88yo male with GBM presents with frequent falls. PMH is significant for HTN, hyperlipidemia and urninary incontinence. He is an ex smoker, no etoh abuse or drug abuse, he is and has 2 daughters, Karen Odonnell is his surogate decision maker and lives in [place]. Studies showed brain CT-2.5cyst L frontal lobe, severe vasogenic edema and L to R midline shift, H/H 15/44, BUN/Cr 24/.88 , egfr 82.1, INR .98 and alb 4.4. Pt was diagnosed with GBM in December 2018 in [place] and was treated with possible resection, radiation and chemo then moved Mar 2019 to live with daughter in [place], [place]. 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 He is admitted now for symptom management with his GBM. All history is from the pt, daughter and medical records. Lab Values: Abnormal Lab Results 04/29/19 04/29/19 04/29/19 22:25 22:25 22:25 WBC 8.6 RBC 4.80 Hgb 15.0 Hct 44 MCV 92 MCH 31 MCHC 34 RDW 15 Plt Count 181 MPV 7.4 Neut % (Auto) 79.2 Lymph % (Auto) 11.2 [place] % (Auto) 8.3 Eos % (Auto) 0.6 Baso % (Auto) 0.7 Absolute Neuts (auto) 6.8 Absolute Lymphs (auto) 1.0 Absolute Monos (auto) 0.7 Absolute Eos (auto) 0.1 Absolute Basos (auto) 0.1 Absolute Nucleated RBC 0.0 Nucleated RBC % 0.0 INR (Anticoag Therapy) 0.98 Sodium 142 Potassium 4.0 Chloride 108 Carbon Dioxide 28 Anion Gap 6 BUN 24 Creatinine 0.88 Est GFR ( Amer) 99.4 Est GFR (Non-Af Amer) 82.1 BUN/Creatinine Ratio 27.3 H Glucose 129 H Lactic Acid Calcium 10.2 Total Bilirubin 0.90 AST 40 H ALT 25 Alkaline Phosphatase 66 Troponin I 0.02 Total Protein 6.7 Albumin 4.4 Globulin 2.3 Albumin/Globulin Ratio 1.9 Urine Color Urine Appearance Urine pH Ur Specific [place] Urine Protein Urine Ketones Urine Blood Urine Nitrate Urine Bilirubin Urine Urobilinogen Ur Leukocyte Esterase Urine Glucose Urine Ascorbic Acid 04/29/19 04/29/19 22:25 23:35 WBC RBC Hgb Hct MCV MCH MCHC RDW Plt Count MPV Neut % (Auto) Lymph % (Auto) [place] % (Auto) Eos % (Auto) Baso % (Auto) Absolute Neuts (auto) Absolute Lymphs (auto) Absolute Monos (auto) Absolute Eos (auto) Absolute Basos (auto) Absolute Nucleated RBC Nucleated RBC % INR (Anticoag Therapy) Sodium Potassium Chloride Carbon Dioxide Anion Gap BUN Creatinine Est GFR ( Amer) Est GFR (Non-Af Amer) BUN/Creatinine Ratio Glucose Lactic Acid 1.1 Calcium Total Bilirubin AST ALT Alkaline Phosphatase Troponin I Total Protein Albumin Globulin Albumin/Globulin Ratio Urine Color Madelaine Urine Appearance Cloudy Urine pH 5.0 Ur Specific [place] 1.024 Urine Protein Negative Urine Ketones Trace A Urine Blood Negative Urine Nitrate Negative Urine Bilirubin Negative Urine Urobilinogen Negative Ur Leukocyte Esterase Negative Urine Glucose 1+(50 mg/dl) A Urine Ascorbic Acid * A Laboratory Last Values WBC 8.6 10^3/uL (3.5-10.8) 04/29/19 22:25 RBC 4.80 10^6 /uL (4.18-5.48) 04/29/19 22:25 Hgb 15.0 g/dL (14.0-18.0) 04/29/19 22:25 Hct 44 % (42-52) 04/29/19 22:25 MCV 92 fL (80-94) 04/29/19 22:25 MCH 31 pg (27-31) 04/29/19 22:25 MCHC 34 g/dL (31-36) 04/29/19 22:25 RDW 15 % (10-15) 04/29/19 22:25 Plt Count 181 10^3/uL (150-450) 04/29/19 22:25 MPV 7.4 fL (7.4-10.4) 04/29/19 22:25 Neut % (Auto) 79.2 % 04/29/19 22:25 Lymph % (Auto) 11.2 % 04/29/19 22:25 [place] % (Auto) 8.3 % 04/29/19 22:25 Eos % (Auto) 0.6 % 04/29/19 22:25 Baso % (Auto) 0.7 % 04/29/19 22:25 Absolute Neuts (auto) 6.8 10^3/ul (1.5-7.7) 04/29/19 22:25 Absolute Lymphs (auto) 1.0 10^3/ul (1.0-4.8) 04/29/19: Absolute Monos (auto) 0.7 10^3/ul (0-0.8) 04/29/19: Absolute Eos (auto) 0.1 10^3/ul (0-0.6) 04/29/19: Absolute Basos (auto) 0.1 10^3/ul (0-0.2) 04/29/19: Absolute Nucleated RBC 0.0 10^3/ul 04/29/19: Nucleated RBC % 0.0 04/29/19 22: INR (Anticoag Therapy) 0.98 (0.82-1.09) 04/29/19 22:25 Sodium 142 mmol/L (135-145) 04/29/19 22:25 Potassium 4.0 mmol/L (3.5-5.0) 04/29/19 22:25 Chloride 108 mmol/L (101-111) 04/29/19 22:25 Carbon Dioxide 28 mmol/L (22-32) 04/29/19 22:25 Anion Gap 6 mmol/L (2-11) 04/29/19 22:25 BUN 24 mg/dL (6-24) 04/29/19:25 Creatinine 0.88 mg/dL (0.67-1.17) 04/29/19 22:25 Est GFR ( Amer) 99.4 (>60) 04/29/19 22:25 Est GFR (Non-Af Amer) 82.1 (>60) 04/29/19 22:25 BUN/Creatinine Ratio 27.3 (8-20) H 04/29/19 22:25 Glucose 129 mg/dL (70-100) H 04/29/19 22:25 Lactic Acid 1.1 mmol/L (0.5-2.0) 04/29/19 22:25 Calcium 10.2 mg/dL (8.6-10.3) 04/29/19 22:25 Total Bilirubin 0.90 mg/dL (0.2-1.0) 04/29/19 22:25 AST 40 U/L (13-39) H 04/29/19 22:25 ALT 25 U/L (7-52) 04/29/19 22:25 Alkaline Phosphatase 66 U/L (34-104) 04/29/19 22:25 Troponin I 0.02 ng/mL (<0.04) 04/29/19 22:25 Total Protein 6.7 g/dL (6.4-8.9) 04/29/19 22:25 Albumin 4.4 g/dL (3.2-5.2) 04/29/19 22:25 Globulin 2.3 g/dL (2-4) 04/29/19 22:25 Albumin/Globulin Ratio 1.9 (1-3) 04/29/19 22:25 Urine Color Madelaine 04/29/19 23:35 Urine Appearance Cloudy 04/29/19 23:35 Urine pH 5.0 (5-9) 04/29/19 23:35 Ur Specific [place] 1.024 (1.010-1.030) 04/29/19 23:35 Urine Protein Negative (Negative) 04/29/19 23:35 Urine Ketones Trace (Negative) A 04/29/19 23:35 Urine Blood Negative (Negative) 04/29/19 23:35 Urine Nitrate Negative (Negative) 04/29/19 23:35 Urine Bilirubin Negative (Negative) 04/29/19 23:35 Urine Urobilinogen Negative (Negative) 04/29/19 23:35 Ur Leukocyte Esterase Negative (Negative) 04/29/19 23:35 Urine Glucose 1+(50 mg/dl) (Negative) A 04/29/19 23:35 Urine Ascorbic Acid * (Negative) A 04/29/19 23:35 - Objective Active Medications: Dexamethasone Sodium Phosphate (Decadron Iv*) 6 mg IV SLOW PU Q4H [facility] Last Admin: 04/30/19 13:54 Dose: 6 mg Sodium Chloride (Ns 0.9% 1000 Ml) 1,000 mls @ 75 mls/hr IV PER RATE [facility] Last Admin: 04/30/19 06:03 Dose: 75 mls/hr Vital Signs: Vital Signs: Temp Pulse Resp BP Pulse Ox 97.7 F 70 16 137/64 98 04/30/19 11:15 04/30/19 11:15 04/30/19 11:15 04/30/19 11:15 04/30/19 11:15 Patient Weight: Weight 97.522 kg Intake and Output: Intake & Output 04/28/19 04/29/19 04/30/19 05/01/19 06:59 06:59 06:59 06:59 Intake Total 50 0 Balance 50 0 Weight 92.986 kg 97.522 kg Intake: IV Fluids 50 Oral 0 ADLs: Meal Record Start: 04/30/19 04: 47 Freq: DAILY@0900,1400,1800 Status: Active Protocol: Created 04/30/19 04:47 System (Rec: 04/30/19 04:47 System MED-C15) Document 04/30/19 08:04 [id number] (Rec: 04/30/19 08:04 [id number] MED-C13) Document 04/30/19 14:00 [id number] (Rec: 04/30/19 14:05 [id number] MED-C11) Intake and Output Start: 04/30/19 04: 47 Freq: DAILY@0600,1400,2200 Status: Active Protocol: Created 04/30/19 04:47 System (Rec: 04/30/19 04:47 System MED-C15) Document 04/30/19 14:00 [id number] (Rec: 04/30/19 14:05 [id number] MED-C11) Eyes: No Scleral Icterus Ears/Nose/Mouth/Throat: Clear Oropharnyx, Mucous Membranes Moist Cardiovascular: NL Sounds; No Murmurs; No JVD, RRR Extremities: No Edema Neurological: Alert and Oriented x 3, - - frequent severe word finding difficulty, expressive aphasia, frequently repeats inappropriate words (for eg: will say this telegraphic typewriter mechanic's last name instead of answer to question about symptoms); CN2-12 intact, strength 4/5 in RLE, 5/5 in other extremities; no pronator drift - Assessment Assessment: 88yo male with GBM presents with recurrent falls and expressive aphasia who is hospice eligible - Plan Consult Plan (MU): Hospice Plan: Spoke with pt and daughter separately. Gave pt information/brochure about hospice. He recognized hospice saying his ex was a social media designer but seemed surprised about needing hospice. Pt has DNR/DNI signed [facility] form on chart. Daughter who is his SDM felt he didn't want to pursue any further treatment for the cancer. He has been living with them on the first floor of their home while they are upstairs and he is stumbling around and has fallen 2x. He is difficult to get up and they feel he needs to be in SNF for his safety. She is interested in him pursuing rehab to prevent further falling and get hospice involved later. Pt is hospice eligible with diagnosis of GBM not pursing further treatment. internet project manager is aware. KPS 50%, PPS 60% - Time On Unit Date of Evaluation: 04/30/19 Hospice Consult Time in: 13:30 Hospice Consult Time Out: 15:00 Hospice Consult Time Total: 90 > 50% of Time Spend In Counseling or Coordinating Care: Yes
--- NOTE | 2019-04-30 17:32 | CONS ---
NEUROLOGY CONSULTATION NOTE: DATE OF CONSULT: 04/30/19 CONSULTING PROVIDER: MARCIN Lizarraga REASON FOR CONSULT: Vasogenic brain edema. CHIEF COMPLAINT: No complaints at all. HISTORY OF PRESENT ILLNESS: This is an unfortunate 88-year-old man who has a history of right frontal GBM where he is status post surgical debridement and 3 weeks of radiation therapy as well as chemotherapy, who presented to [facility] last night for frequent falls. The patient has baseline aphasia with mild right hemiparesis. The patient recently moved from [place] to live with his daughter. According to the family, the patient's aphasia and overall neurological problems have deteriorated, but waxed and waned over the last few days. Neurology was involved to assess the patient for a possible Decadron therapy due to CT head findings of vasogenic edema in the left frontal lobe as well as 2.5 cm cystic mass. The patient has not had any seizure like activity. PAST MEDICAL HISTORY: Hypertension, dyslipidemia, low testosterone, urine incontinence, and GBM, status post chemoradiation and debulking surgery. HOME MEDICATIONS: 1. Flonase. 2. Dexamethasone 2 mg daily, but the patient was not taking the medication. 3. Diazepam 10 mg as needed. 4. Testosterone 5 mL intramuscular weekly. 5. Temazepam 15 mg daily at bedtime. 6. B-complex. 7. L-arginine. 8. Timolol. 9. Multivitamins. 10. Calcium. 11. Tamsulosin. 12. Latanoprost. 13. Norvasc 2.5 mg daily. 14. Metoprolol 25 mg daily. 15. Atorvastatin 10 mg daily. 16. Probiotics 1 tablet oral daily. 17. Finasteride 5 mg oral daily. ALLERGIES: SULFA ANTIBIOTICS. FAMILY HISTORY: No family history of stroke or seizures. SOCIAL HISTORY: The patient was a smoker, 3 packs per day, but quit in the 1974. No history of alcohol use. REVIEW OF SYSTEMS: The patient is aphasic and unable to provide accurate review of systems, but denied all tested review of systems. PHYSICAL EXAM: Vitals: Temperature 98.4, pulse rate 80, respiratory rate 16, oxygen saturation 96%, blood pressure 121/55. General: Well-nourished, well- developed, pleasant man, in no acute distress. Head: Atraumatic, normocephalic without any obvious abnormality. Neck is supple and symmetrical with no carotid bruit. Eyes: Conjunctivae/corneas are clear. Cardiovascular: Regular rate and rhythm with normal S1 and S2. Respiratory: Clear to auscultation bilaterally. Extremities: Normal range of motion with no cyanosis. Skin: No skin lesions or lacerations. Psych: Affect is broad. Normal mood. The patient was crying at the end of our interview due to his condition. Neurological Examination: Mental Status: Awake, alert to self and place. He has expressive aphasia. He has mild psychomotor slowing. Cranial Nerves: Pupils equal, round, reactive to light. Extraocular muscles are intact. There is a mild right facial droop. Tongue is symmetric and midline with no atrophy or fasciculation. Motor Examination: 5/5 strength all throughout except for 4/5 strength to right hip flexors. Normal tone and bulk throughout. Reflexes: 2+ on the right, 1+ on the left with absent at the ankles bilaterally. Extensor plantar response on the right. Sensation is intact throughout except for he has tactile extinction on the right. Coordination: Motor dysmetria on the right. Gait: Wide based, required assistance. DIAGNOSTIC STUDIES/LAB DATA: WBC of 8.6, hemoglobin of 15, hematocrit of 44. Sodium of 142, potassium of 4.0, chloride of 108, BUN of 24, creatinine of 0.88 , BUN-creatinine ratio of 27, glucose of 129. AST 40. Urinalysis is negative for pyuria. CT head without contrast showed an approximately 2.5 cm cystic mass in the left frontal lobe just deep to the left frontal craniotomy defect, likely compatible with provided history of GBM. Recommend further evaluation with MR with and without contrast. There is also severe vasogenic edema throughout the left frontal lobe with associated 0.7 cm left to right midline shift and subfalcine herniation. ASSESSMENT AND RECOMMENDATIONS: Mr. Segun Aragon is an 88-year-old pleasant but unfortunate man with history of glioblastoma multiforme, who presented with falls. I suspect his falls are multifactorial, likely related to right hemiparesis, dehydration, but unlikely to be related to seizures. There are no reported seizures. On examination, he has aphasia and right hemiparesis explained by the large lesion and mass effect in the left hemisphere. Overall , I recommend continuing Decadron and defer further dose adjustment to the primary or oncology team. Hold off on any antiseizure medications unless the patient has evidence of seizures. At that time, he can be started on levetiracetam for symptomatic relief. Agree with palliative care consultation. There are no further neurological recommendations at this time. Please contact us for any questions or concerns. [id number]/JAMISON #: [id number] MTDD
[2019-04-30] MEDS ORDERED: Temazepam CAP* 15 MG PO PRN (19:33)
[2019-04-30] MEDS: Tamsulosin CAP* 0.4 MG PO SCH (22:08)
[2019-05-01] MEDS: Dexamethasone IV* 4 MG/ML 1 ML (4 MG) IV SLOW PU SCH ×4 (01:24→13:52)
[2019-05-01] MEDS: NS 0.9% 1000 ML** 1,000 ML IV SCH (05:31)
--- NOTE | 2019-05-01 06:43 | PN ---
Hospitalist Progress Note Date of Service: 04/30/19 Subjective- Pt still shows aphasia and weakness in right arm. Pt says cannot urinate. Pt denies any other issues. Past medical Hx of HTN, dyslipidemia, low testosterone , urinary incontinence(possible BPH) Continue pt on IV steroids Patient open to palliative care Objective- Dexamethasone Sodium Phosphate(Decadron Iv) Last administered: 04/30/19 09:12 Dose 6 mg Sodium Chloride (Ns 0.9% 1000 ml) @75 mls/hr IV PER RATE Last administered: 04/30/19 06:03 DOSE: 75 mls/hr Appearance- well appearing man Eyes-no scleral icterus Ears/nose/throat/mouth- clear oropharynx, mucous membranes moist Resp- BL lungs clear to auscultation Cardio- Normal rate and rhythm, S1, S2 Extremities-No edema present Skin-Rash/scab on right nose Neuro- Aphasia(pt has difficulty finding words). CN 2-12 intact. Strength 4/5 in RLE. 5/5 in other extremities. BL ankle reflexes absent. Reflex 2+ on right, 1+ on L. Loss of tactile extinction on right. Motor dysmetria on right Assessment/Plan- 88M with GBM after surgical debridement and radiation. Pt has past med hx of HTN , dyslipidemia, Low testosterone, urinary incontinence. Pt presents with recurrent falls. CT shows Left temporal lobe mass with vasogenic edema, subfalcine herniation and left to right midline shift (.7cm) Patient problems (1)- Glioblastoma multiforme -continue on IV steroids(lower dose to 16-24 mg/day) -palliative care (2)- Falls- most likely from brain mass -continue on IV steroids -PT to help with falls (3)-DVT prophylaxis (4) DNR
[2019-05-01] MEDS: Timolol 0.5% OPTH.SOL* BTL BOTH EYES SCH (09:12)
[2019-05-01] MEDS: Fluticasone NASAL SPRAY 50MCG* 16 gm SPRAY BTL BOTH NARES SCH (09:13)
[2019-05-01] MEDS: Latanoprost 0.005%* 2.5 ml BTL BOTH EYES SCH (09:57)
--- NOTE | 2019-05-01 14:19 | PN ---
Subjective Date of Service: 05/01/19 Interval History: No events overnight. Patient switched from IV to PO steroids and resumed on home meds. Patient reports he still feels "great" and denies weakness. His speech is notably more fluent than yesterday. He reports he is not yet interested in hospice, as he thinks he can live more than 6 more months, but would be interested in continued palliative care. Objective Active Medications: Dexamethasone (Decadron Tab*) 8 mg PO BID [facility] Fluticasone Propionate (Flonase Nasal [place] 50mcg*) 2 spray BOTH NARES DAILY [facility] Last Admin: 05/01/19 09:13 Dose: 2 spray Latanoprost (Xalatan 0.005%*) 1 drop BOTH EYES DAILY [facility] Last Admin: 05/01/19 09:57 Dose: 1 drop Tamsulosin HCl (Flomax Cap*) 0.4 mg PO BEDTIME [facility] Last Admin: 04/30/19 22:08 Dose: 0.4 mg Temazepam (Restoril Cap*) 15 mg PO BEDTIME PRN PRN Reason: INSOMNIA Timolol Maleate (Timoptic 0.5% Opth*) 1 drop BOTH EYES DAILY [facility] Last Admin: 05/01/19 09:12 Dose: 1 drop Vital Signs - 8 hr 05/01/19 05/01/19 07:15 11:18 Temperature 97.6 F 98.3 F Pulse Rate 84 68 Respiratory 17 17 Rate Blood Pressure 150/79 125/59 (mmHg) O2 Sat by Pulse 99 100 Oximetry Oxygen Devices in Use Now: None Appearance: well appearing elderly man in NAD Ears/Nose/Mouth/Throat: Clear Oropharnyx, Mucous Membranes Moist Neck: NL Appearance and Movements; NL JVP Respiratory: Symmetrical Chest Expansion and Respiratory Effort, Clear to Auscultation Cardiovascular: NL Sounds; No Murmurs; No JVD, RRR Abdominal: NL Sounds; No Tenderness; No Distention, No Hepatosplenomegaly Extremities: No Edema Neurological: Alert and Oriented x 3, - - R hip 4/5 strength, otherwise 5/5 in UEs and LLE, [id number] impaired on R; delayed responses to questions and with slow speech but not slurred, expressive aphasia improving Result Diagrams: 04/29/19 22:25 04/29/19 22:25 Additional Lab and Data: Lab Results 04/29/19 04/29/19 04/29/19 Range/Units 22:25 22:25 22:25 WBC 8.6 (3.5-10.8) 10^3/uL RBC 4.80 (4.18-5.48) 10^6 /uL Hgb 15.0 (14.0-18.0) g/dL Hct 44 (42-52) % MCV 92 (80-94) fL MCH 31 (27-31) pg MCHC 34 (31-36) g/dL RDW 15 (10-15) % Plt Count 181 (150-450) 10^3/uL MPV 7.4 (7.4-10.4) fL Neut % (Auto) 79.2 % Lymph % (Auto) 11.2 % [place] % (Auto) 8.3 % Eos % (Auto) 0.6 % Baso % (Auto) 0.7 % Absolute Neuts (auto) 6.8 (1.5-7.7) 10^3/ul Absolute Lymphs (auto) 1.0 (1.0-4.8) 10^3/ul Absolute Monos (auto) 0.7 (0-0.8) 10^3/ul Absolute Eos (auto) 0.1 (0-0.6) 10^3/ul Absolute Basos (auto) 0.1 (0-0.2) 10^3/ul Absolute Nucleated RBC 0.0 10^3/ul Nucleated RBC % 0.0 INR (Anticoag Therapy) 0.98 (0.82-1.09) Sodium 142 (135-145) mmol/L Potassium 4.0 (3.5-5.0) mmol/L Chloride 108 (101-111) mmol/L Carbon Dioxide 28 (22-32) mmol/L Anion Gap 6 (2-11) mmol/L BUN 24 (6-24) mg/dL Creatinine 0.88 (0.67-1.17) mg/dL Est GFR ( Amer) 99.4 (>60) Est GFR (Non-Af Amer) 82.1 (>60) BUN/Creatinine Ratio 27.3 H (8-20) Glucose 129 H (70-100) mg/dL Lactic Acid (0.5-2.0) mmol/L Calcium 10.2 (8.6-10.3) mg/dL Total Bilirubin 0.90 (0.2-1.0) mg/dL AST 40 H (13-39) U/L ALT 25 (7-52) U/L Alkaline Phosphatase 66 (34-104) U/L Troponin I 0.02 (<0.04) ng/mL Total Protein 6.7 (6.4-8.9) g/dL Albumin 4.4 (3.2-5.2) g/dL Globulin 2.3 (2-4) g/dL Albumin/Globulin Ratio 1.9 (1-3) Urine Color Urine Appearance Urine pH (5-9) Ur Specific [place] (1.010-1.030) Urine Protein (Negative) Urine Ketones (Negative) Urine Blood (Negative) Urine Nitrate (Negative) Urine Bilirubin (Negative) Urine Urobilinogen (Negative) Ur Leukocyte Esterase (Negative) Urine Glucose (Negative) Urine Ascorbic Acid (Negative) 04/29/19 04/29/19 Range/Units 22:25 23:35 WBC (3.5-10.8) 10^3/uL RBC (4.18-5.48) 10^6 /uL Hgb (14.0-18.0) g/dL Hct (42-52) % MCV (80-94) fL MCH (27-31) pg MCHC (31-36) g/dL RDW (10-15) % Plt Count (150-450) 10^3/uL MPV (7.4-10.4) fL Neut % (Auto) % Lymph % (Auto) % [place] % (Auto) % Eos % (Auto) % Baso % (Auto) % Absolute Neuts (auto) (1.5-7.7) 10^3/ul Absolute Lymphs (auto) (1.0-4.8) 10^3/ul Absolute Monos (auto) (0-0.8) 10^3/ul Absolute Eos (auto) (0-0.6) 10^3/ul Absolute Basos (auto) (0-0.2) 10^3/ul Absolute Nucleated RBC 10^3/ul Nucleated RBC % INR (Anticoag Therapy) (0.82-1.09) Sodium (135-145) mmol/L Potassium (3.5-5.0) mmol/L Chloride (101-111) mmol/L Carbon Dioxide (22-32) mmol/L Anion Gap (2-11) mmol/L BUN (6-24) mg/dL Creatinine (0.67-1.17) mg/dL Est GFR ( Amer) (>60) Est GFR (Non-Af Amer) (>60) BUN/Creatinine Ratio (8-20) Glucose (70-100) mg/dL Lactic Acid 1.1 (0.5-2.0) mmol/L Calcium (8.6-10.3) mg/dL Total Bilirubin (0.2-1.0) mg/dL AST (13-39) U/L ALT (7-52) U/L Alkaline Phosphatase (34-104) U/L Troponin I (<0.04) ng/mL Total Protein (6.4-8.9) g/dL Albumin (3.2-5.2) g/dL Globulin (2-4) g/dL Albumin/Globulin Ratio (1-3) Urine Color [place] Urine Appearance Cloudy Urine pH 5.0 (5-9) Ur Specific [place] 1.024 (1.010-1.030) Urine Protein Negative (Negative) Urine Ketones Trace A (Negative) Urine Blood Negative (Negative) Urine Nitrate Negative (Negative) Urine Bilirubin Negative (Negative) Urine Urobilinogen Negative (Negative) Ur Leukocyte Esterase Negative (Negative) Urine Glucose 1+(50 mg/dl) A (Negative) Urine Ascorbic Acid * A (Negative) Assess/Plan/Problems-Billing Assessment: 88M with GBM s/p surgical debridement and radiation, HTN, low T, BPH, who presents with increasing frequency of falls, found with expressive aphasia and CT concerning for L frontal lobe mass with severe vasogenic edema, midline shift , and subfalcine herniation. - Patient Problems (1) Glioblastoma multiforme Comment: s/p debulking and possible radiation, although pending outside records. - cont steroids: now dexamethasone 8mg PO q12h - apprecaite Onc, Pall Care, and Neuro recs - pending placement for rehab; pt declining hospice now but open to it later (2) Falls Comment: Likely from known brain mass with edema. Pt with RLE weakness and reports this is why he continues tripping. - on steroids - getting PT, pending placement (3) BPH (benign prostatic hyperplasia) Comment: per history, likely reason for patient's h/o incontinence. None in hospital. - cont tamsulosin (4) DVT prophylaxis Comment: on SCDs given brain ca (5) DNR (do not resuscitate) Current Visit: Yes Status: Acute
[2019-05-01] MEDS: Dexamethasone TAB* 4 MG PO SCH (17:29)
[2019-05-01] MEDS: Tamsulosin CAP* 0.4 MG PO SCH (19:54)
[2019-05-02] MEDS: Fluticasone NASAL SPRAY 50MCG* 16 gm SPRAY BTL BOTH NARES SCH (09:17)
[2019-05-02] MEDS: Dexamethasone TAB* 4 MG PO SCH ×2 (09:17→20:16)
[2019-05-02] MEDS: Timolol 0.5% OPTH.SOL* BTL BOTH EYES SCH (09:18)
[2019-05-02] MEDS: Latanoprost 0.005%* 2.5 ml BTL BOTH EYES SCH (09:20)
--- NOTE | 2019-05-02 15:55 | PN ---
Subjective Date of Service: 05/02/19 Interval History: No overnight events. Pt accepted to rehab but pending callback from daughter for placement. Pt denies complaints. Objective Active Medications: Dexamethasone (Decadron Tab*) 8 mg PO BID [facility] Last Admin: 05/02/19 09:17 Dose: 8 mg Fluticasone Propionate (Flonase Nasal [place] 50mcg*) 2 spray BOTH NARES DAILY [facility] Last Admin: 05/02/19 09:17 Dose: 2 spray Latanoprost (Xalatan 0.005%*) 1 drop BOTH EYES 2100 [facility] Tamsulosin HCl (Flomax Cap*) 0.4 mg PO BEDTIME [facility] Last Admin: 05/01/19 19:54 Dose: 0.4 mg Temazepam (Restoril Cap*) 15 mg PO BEDTIME PRN PRN Reason: INSOMNIA Timolol Maleate (Timoptic 0.5% Opth*) 1 drop BOTH EYES DAILY [facility] Last Admin: 05/02/19 09:18 Dose: 1 drop Vital Signs - 8 hr 05/02/19 05/02/19 05/02/19 08:28 09:10 09:44 Temperature 98 F Pulse Rate 70 Respiratory 26 20 20 Rate Blood Pressure 158/69 (mmHg) O2 Sat by Pulse 100 Oximetry 05/02/19 11:45 Temperature 98.0 F Pulse Rate 56 Respiratory 20 Rate Blood Pressure 137/62 (mmHg) O2 Sat by Pulse 97 Oximetry Oxygen Devices in Use Now: None Appearance: well appearing man in NAD Ears/Nose/Mouth/Throat: Clear Oropharnyx, Mucous Membranes Moist Neck: NL Appearance and Movements; NL JVP, Trachea Midline Respiratory: Symmetrical Chest Expansion and Respiratory Effort, Clear to Auscultation Cardiovascular: RRR Abdominal: NL Sounds; No Tenderness; No Distention, No Hepatosplenomegaly Extremities: No Edema Neurological: Alert and Oriented x 3 Result Diagrams: 04/29/19 22:25 04/29/19 22:25 Assess/Plan/Problems-Billing Assessment: 88M with GBM s/p surgical debridement and radiation, HTN, low T, BPH, who presents with increasing frequency of falls, found with expressive aphasia and CT concerning for L frontal lobe mass with severe vasogenic edema, midline shift , and subfalcine herniation. - Patient Problems (1) Glioblastoma multiforme Comment: s/p debulking and possible radiation, although pending outside records. - cont steroids: now dexamethasone 8mg PO q12h - apprecaite Onc, Pall Care, and Neuro recs - pending placement for rehab; pt declining hospice now but open to it later (2) Falls Comment: Likely from known brain mass with edema. Pt with RLE weakness and reports this is why he continues tripping. - on steroids - getting PT, pending placement (3) BPH (benign prostatic hyperplasia) Comment: per history, likely reason for patient's h/o incontinence. None in hospital. - cont tamsulosin (4) DVT prophylaxis Comment: on SCDs given brain ca (5) DNR (do not resuscitate) Current Visit: Yes Status: Acute
[2019-05-02] MEDS: Tamsulosin CAP* 0.4 MG PO SCH (20:16)
[2019-05-02] MEDS ORDERED: Latanoprost 0.005%* 2.5 ml BTL BOTH EYES SCH (21:00)
[2019-05-03 07:33] VITALS: BP 159/79
[2019-05-03] MEDS: Timolol 0.5% OPTH.SOL* BTL BOTH EYES SCH (08:57)
[2019-05-03] MEDS: Fluticasone NASAL SPRAY 50MCG* 16 gm SPRAY BTL BOTH NARES SCH (08:57)
[2019-05-03] MEDS: Dexamethasone TAB* 4 MG PO SCH (08:57)
--- NOTE | 2019-05-03 10:43 | DS ---
CC: Juan Crokcer MD; Dr. Maria R Rios; Dr. Keven Piña; Dr. Piper Spencer.* DISCHARGE SUMMARY: DATE OF ADMISSION: 04/30/19 DATE OF DISCHARGE: 05/03/19 PRIMARY CARE PHYSICIAN: Juan Crocker MD PRIMARY DIAGNOSES: 1. Glioblastoma multiforme. 2. Mechanical falls. SECONDARY DIAGNOSES: 1. Hypertension. 2. Benign prostatic hypertrophy. CONSULTS: Dr. Maria R Rios of Palliative Care; Dr. Keven Piña of Oncology ; and Dr. Piper Spencer of Neurology. DISCHARGE MEDICATIONS: 1. Dexamethasone 8 mg p.o. twice a day. 2. Tamsulosin 0.4 mg twice a day. 3. Temazepam 15 mg at bedtime as needed for insomnia. 4. Flonase 2 sprays to both nostrils daily. 5. Timolol 0.5 Ophtho drops 1 drop to both eyes daily. 6. Latanoprost 0.005% eye drop to both eyes daily. HISTORY OF PRESENT ILLNESS: Mr. Aragon is an 88-year-old man with a history of glioblastoma multiforme, status post debulking, radiation and oral chemotherapy , also with hypertension, low testosterone, urinary incontinence likely from BPH who was in his usual state of health until December of this year when he started experiencing expressive aphasia with recurrent falls and was subsequently diagnosed with GBM in the [place] of [place]. In [place] he received surgical debridement with 3 weeks' of radiation and oral chemotherapy, afterwards he moved to [place] last month to be with his daughter who could care for him. Over the last few days, the patient has had intermittent expressive aphasia, per his daughter which has been an ongoing issue that is progressive since December. He has also experienced right lower extremity weakness which has resulted in multiple falls. On the Monday prior to presentation, he sustained a fall and they had another person come and check on him afterwards and they found again he had fallen. At which point, they called his primary care physician who suggested the patient come to the ER for further evaluation. On initial interview, the patient had denied complaints stating he felt well except for some mild right-sided weakness, although the patient is visibly frustrated with his word finding ability reduced due to his expressive aphasia. HOSPITAL COURSE: The patient was admitted to Medicine for further diagnosis and treatment of his known brain mass with frequent falls. His initial brain CT showed brain mass with vasogenic edema resulting in midline shift and small herniation. The patient was started on IV steroids and had significant improvement in his symptoms, although still with mild expressive aphasia and weakness on the right. He was seen by Oncology who recommended oral steroids with dexamethasone at a total of 16 to 24 mg per day. Hospice was also recommended as the patient expressed that he did not want to receive further treatment for his tumor. The patient was seen and evaluated by hospice and deemed eligible for hospice services, although after extensive discussion with our palliative care team, the patient states he does not feel that he is ready for hospice, although he is aware of its utility and instead he initially wants to pursue rehabilitation to prevent falls. Multiple care providers and case management team have discussed this plan with daughter who does prefer that the patient be placed in a subacute nursing facility for his own safety as he is becoming increasingly more difficult to care for in the home. While the patient is hospice eligible, he will be discharged to rehab first with possible hospice services later. Lastly the patient was seen by Dr. Spencer of Neurology who recommended to hold off on seizure prophylaxis at this time given no history of seizures, although if this was needed, he could be started on levetiracetam for symptomatic relief. On day of discharge, the patient again reports feeling leon and he is looking forward to attending rehabilitation services. He does report mild right-sided weakness but generally a 10-point review of systems which was performed was limited by his expressive aphasia. PHYSICAL EXAM: Afebrile, heart rate 50, blood pressure 129/68, respiratory rate 16, oxygen saturation is 97% on room air. In general, he is a well- appearing man, in no acute distress who is alert and interactive. Neck: No JVD. Supple. HEENT: With moist mucous membranes. Heart: Regular rate and rhythm. No murmurs, gallops or rubs. Lungs: Clear to auscultation bilaterally. Abdomen: soft, nontender, nondistended. Extremities: Warm and well perfused without evidence of edema. Neuro: A and O x3. Delayed responses to questions, and gives only brief answers. Pupils equal, round, reactive to light. EOMI. Mild right- sided facial droop. Motor exam significant for 4/5 strength to right hip flexors, with other extremities with 5/5 strength, normal tone and bulk throughout. Hypereflexia on right upper and lower extremity. No pronator drift. 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 DIAGNOSTIC STUDIES AND IMAGING: CBC, BMP, LFTs unremarkable. UA with trace ketones. Brain CT approximately 2.5 cm cystic mass in the left frontal lobe just deep to the left frontal craniotomy defect likely compatible with provided history of glioblastoma. Recommended further evaluation with brain MRI with and without contrast. Severe vasogenic edema throughout the left frontal lobe with associated 0.7 cm left to right midline shift and subfalcine herniation. DISCHARGE PLAN: The patient will be discharged to [facility] for ongoing rehabilitation services for fall prevention. The patient is amenable to hospice if his condition worsens and he is not interested in perfusing further treatments for his known glioblastoma. His home medications are to be continued as above with the notable change of increasing his home dose of dexamethasone and also the discontinuation of certain medications that were not deemed to have benefit including his statin, metoprolol, amlodipine, and multiple supplements. His blood pressures are well maintained in the hospital without antihypertensives, except for tamsulosin, which was continued for ongoing urinary retention. He should eat a diet for comfort and activity as determined by rehabilitation. DISPOSITION: [facility]. CONDITION: Improved. TIME SPENT: Approximately 60 minutes was spent on the discharge of this patient , more than half of which was spent with care coordination at bedside for interview and exam. [id number]/[facility] #: [id number] GERRY
== END 2019-05-03 11:15 | DRG 54 ==
LOC: ED 18:38 → MED 04-30 04:16
PROVIDERS: ADMIT Internal Medicine; ATTEND Internal Medicine
DX: C71.2 Malignant neoplasm of temporal lobe (principal); G93.6 Cerebral edema; G93.5 Compression of brain; R47.01 Aphasia; G81.91 Hemiplegia, unspecified affecting right dominant side; R29.6 Repeated falls; I10 Essential (primary) hypertension; E86.0 Dehydration; N40.1 Benign prostatic hyperplasia with lower urinary tract symptoms; R32 Unspecified urinary incontinence; E78.5 Hyperlipidemia, unspecified; Z66 Do not resuscitate; E29.1 Testicular hypofunction; Z72.89 Other problems related to lifestyle; Z92.3 Personal history of irradiation; Z92.21 Personal history of antineoplastic chemotherapy; Z88.2 Allergy status to sulfonamides; Z87.891 Personal history of nicotine dependence
CPT/HCPCS: 36415; 70450; 72125; 80053; 81003; 83605; 84484; 85025; 85610; 99284; A9270-GY; G8978-GP-CJ; G8979-GP-CI; G8987-GO-CJ; G8988-GO-CI; J1100; J8540